=== PATIENT | female | born 1995 | race Caucasian/White ===

== ENCOUNTER 2018-05-21 06:41 | Emergency (ER) | payer OTHER ==
[~2018-05-21] VITALS: Ht 175.3 cm; Wt 95.3 kg
[~2018-05-21 06:41] MED LIST: ZOFRAN4 M1 SL
[2018-05-21 07:08] VITALS: BP 118/66
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
== END 2018-05-21 09:32 ==
LOC: ERH 06:41
DX: T74.11XA Adult physical abuse, confirmed, initial encounter (principal); S09.90XA Unspecified injury of head, initial encounter; Y04.0XXA Assault by unarmed brawl or fight, initial encounter; Y07.03 Male partner, perpetrator of maltreatment and neglect
CPT/HCPCS: 81001; 81025